=== PATIENT | female | born 1955 | race Caucasian/White ===

== ENCOUNTER 2018-08-21 12:54 | Outpatient (CLI) | payer OTHER | END 2018-08-21 12:55 | disposition home or self-care (01) | LOC: SONOGRAMA 12:54 | DX: E04.1 Nontoxic single thyroid nodule (principal) ==

== ENCOUNTER 2025-03-29 12:10 | Outpatient (CLI) | payer OTHER | END 2025-03-29 12:14 | disposition home or self-care (01) | LOC: RAD 12:10 | PROVIDERS: ATTEND Internal Medicine | DX: M10.071 Idiopathic gout, right ankle and foot (principal) ==